=== PATIENT | female | born 1935 | race Caucasian/White ===

== ENCOUNTER → 2017-07-13 | Outpatient (CLI) | payer MEDICARE | END | disposition home or self-care (01) | LOC: CDC 14:19 | DX: Z01.810 Encounter for preprocedural cardiovascular examination (principal); C50.512 Malignant neoplasm of lower-outer quadrant of left female breast; R94.31 Abnormal electrocardiogram [ECG] [EKG] | CPT/HCPCS: 93000 ==

== ENCOUNTER 2017-07-29 05:16 | Day surgery (SDC) | payer OTHER ==
[~2017-07-29] VITALS: Ht 162.6 cm; Wt 66.6 kg
[~2017-07-29 05:16] MED LIST: ACIDOPHILUS1 EAC5 PO; FISH OIL 1,0001 EAC7 PO; GARLIC OIL1000 MG PO; HYDROCHLOROTHIA25 MG PO; K-DUR10 MEQ PO; LO-DOSE ASPIRIN81 M1 PO; NORVASC10 MG PO; PROZAC20 MG PO; RED YEAST RICE600 M1 PO; TENORMIN25 MG PO; ULTRAM50 MG PO; VITAMIN B COMP1 EACH PO
[2017-07-29 05:49] VITALS: BP 129/62
[2017-07-29] MEDS ORDERED: NORCO 5/3251 TABLET PO (12:22)
[2017-07-29 13:38] VITALS: BP 98/57
[2017-07-29 14:41] VITALS: BP 97/67
== END 2017-07-29 14:47 | disposition home or self-care (01) ==
LOC: NUC 05:16 → SDC 05:16
DX: C50.512 Malignant neoplasm of lower-outer quadrant of left female breast (principal); Z17.0 Estrogen receptor positive status [ER+]; I10 Essential (primary) hypertension; R00.1 Bradycardia, unspecified; Z80.3 Family history of malignant neoplasm of breast; Z90.710 Acquired absence of both cervix and uterus; Z80.0 Family history of malignant neoplasm of digestive organs; F17.210 Nicotine dependence, cigarettes, uncomplicated; Z79.82 Long term (current) use of aspirin
CPT/HCPCS: 78195; 78999; 88305; 88307; A9541; J0131; J0690; J1100; J2250; J2405; J3010; S0020